=== PATIENT | male | born 2005 | race Hispanic/Latino ===

== ENCOUNTER 2024-06-05 20:58 | Emergency (ER) | payer SELFPAY ==
[~2024-06-05] VITALS: Ht 162.6 cm; Wt 68.0 kg
[2024-06-05] MEDS: 0.9%NACL 1000ML 1,185 ML IV ONE (21:13)
[2024-06-05 21:24] LABS: BASOPHILS # (AUTO) 0.13 K/uL (0.00-0.20); BASOPHILS % (AUTO) 0.5 % (0.0-5.0); EOSINOPHILS # (AUTO) 0.01 K/uL (0.00-0.70); HEMATOCRIT 46.7 % (42-54); IMMATURE GRANULOCYTE ABSOLUTE 0.49 K/uL (0-1); LYMPHOCYTES # (AUTO) 2.5 K/uL (1.0-4.8); LYMPHOCYTES % (AUTO) 9.4 % (21.0-51.0); MEAN CORPUSCULAR HEMOGLOBIN 31.3 pg (27.0-33.0); MEAN CORPUSCULAR HGB CONC 36.4 g/dL (32.0-36.0); MEAN CORPUSCULAR VOLUME 85.8 fL (80-100); MONOCYTES # (AUTO) 2.4 K/uL (0.1-1.0); NEUTROPHILS # (AUTO) 21.1 K/uL (1.8-7.7); NEUTROPHILS % (AUTO) 79.3 % (40.0-77.0); PLATELET COUNT (AUTO) 307 K/uL (130-400); RED BLOOD CELL COUNT(AUTO) 5.44 MIL/uL (4.50-6.20); RED CELL DISTRIBUTION WIDTH 11.9 % (11.0-15.5); WHITE BLOOD COUNT (AUTO) 26.6 K/uL (4.8-10.8)
[2024-06-05 21:44] LABS: BILIRUBIN,TOTAL 2.3 mg/dL (0.2-1.0); CREATININE 1.8 mg/dL (0.5-1.3); TOTAL PROTEIN, SERUM 8.6 g/dL (6.0-8.3)
[2024-06-05 21:46] LABS: POTASSIUM 2.9 mmol/L (3.5-5.1)
[2024-06-05] MEDS: PoTASSium chl 10% ELIXIR 20MEQ 20 MEQ/15 ML UDCUP PO ONE (22:19)
[2024-06-05 22:50] LABS: APPEARANCE,URINE CLOUDY (CLEAR); BILIRUBIN,URINE NEGATIVE (NEGATIVE); COLOR,URINE LIGHT-YELLOW (YELLOW); GLUCOSE, URINE (UA) NEGATIVE (NEGATIVE); KETONES,URINE 5 mg/dL (NEGATIVE); LEUKOCYTE ESTERASE ,URINE 250 Leu/uL (NEGATIVE); NITRATE,URINE NEGATIVE (NEGATIVE); PROTEIN,URINE 70 mg/dL (NEGATIVE); UROBILINOGEN,URINE 0.2 mg/dL (0.2-1.0)
[2024-06-05 23:00] LABS: ADD UA MICROSCOPIC YES
[2024-06-05 23:27] VITALS: BP 138/66; PULSE 100; RESP 20; TEMP 98.5; O2SAT 98
[2024-06-05 23:30] LABS: BACTERIA,URINE None Seen /HPF (None Seen); MUCUS,URINE Rare LPF (None Seen); SQUAMOUS EPITHELIAL CELL,UR Rare /HPF (0-2); WBC CLUMP 0-1 /HPF (0-1); WBC,URINE 26-50 /HPF (0-1)
== END 2024-06-05 23:30 | disposition home or self-care (01) ==
LOC: EDH 20:58
DX: E86.0 Dehydration (principal); R51.9 Headache, unspecified; R11.0 Nausea; R10.13 Epigastric pain; R61 Generalized hyperhidrosis
CPT/HCPCS: 36415; 80053; 81001; 82550; 85025; 87086